=== PATIENT | male | born 1975 | race Caucasian/White ===

== ENCOUNTER 2020-06-24 22:15 | Observation (INO) ==
--- NOTE | 2020-06-24 22:40 | ERNOTE ---
Date of Service: 06/24/20 Time Seen by Provider: 06/24/20 22:30 Stated Complaint: URI Presenting Symptoms:: cough Source: patient Exam Limitations: no limitations Immunizations: IMMUNIZATION HX Immunizations Up to Date Yes History of Influenza Vaccine No Hx Pneumococcal Vaccination No Allergies/Adverse Reactions: Allergies morphine Allergy (Verified 09/22/18 01:23) Home Medications: HOME MEDICATIONS Albuterol Sulfate [Ventolin Hfa] 1 - 2 puff IH Q4H PRN #1 hfa.aer.ad 05/21/20 [Last Taken Unknown] - History of Present Ilness Narrative: 44-year-old male with past medical history of COPD, previous IV drug use presents for cough and shortness of breath. Patient states he smokes approximately half pack a day. He recently stopped using IV drugs approximately 3 weeks ago. He notes having a recent cough for about a month now. He was seen in our emergency department at the end of April and started on azithromycin with prednisone. He was later then seen by his primary care provider and started on doxycycline. He states despite these medications his symptoms have worsened. He reports having a fever yesterday of 102. Patient also states that he had COVID-19 in February 2020. He reports full resolution symptoms since his February diagnosis of Covid. Patient reports that when he was previously diagnosed with COVID-19 he was incarcerated. Patient reports his cough is nonproductive, and primarily he has noticed wheezing or shortness of breath. Patient reports he has been taking steroid inhaler, DuoNeb, and albuterol at home without resolution of symptoms. Timing: constant, getting worse Frequency/Possible Cause: Reports: occasional episodes Modifying Factors - Improves: Reports: albuterol Modifying Factors - Worsens: Reports: coughing Associated Symptoms: Reports: cough, shortness of breath, wheezing Prior Treatment: Reports: recently seen, treated by physician Review of Systems - Narrative Narrative: REVIEW OF SYSTEMS GENERAL: Negative for any nausea, vomiting, or weight loss. HEENT: Negative for sore throats, congestion, changes in vision, changes in hearing, CARDIAC: Negative for any chest pain, or palpitations. PULMONARY: Positive for shortness of breath, cough, or wheezing. GASTROINTESTINAL: Negative for any abdominal pain, nausea, vomiting, constipation, or diarrhea. GENITOURINARY: Negative for any dysuria, changes in urine output. INTEGUMENTARY: Negative for any rashes. NEUROLOGIC: Negative for changes in vision or headaches. RHEUMATOLOGIC: Negative for any joint pains, Medical History (Last Reviewed 06/25/20 @ 00:56 by Sulaiman Perez MD) Asthma HTN (hypertension) Seizure Surgical History: Surgical History (Last Reviewed 06/25/20 @ 00:56 by Sulaiman Perez MD) Hx of appendectomy Family History: Family History (Last Reviewed 06/25/20 @ 00:56 by Sulaiman Perez MD) Other No pertinent family history in first degree relatives Social History: (Last Reviewed 06/25/20 @ 00:56 by Sulaiman Perez MD) Tobacco: Smoking Status: Current every day smoker Alcohol: alcohol intake: former Substance Use: substance use type: amphetamines Physical Exam - Physical Exam General Appearance: Present: wd/wn, no apparent distress Respiratory: Present: no accessory muscle use, decreased breath sounds, rhonchi, wheezing Cardiovascular/Chest: Present: tachycardia Gastrointestinal/Abdominal: Present: nontender Neurological Exam: Present: alert, oriented, normal mood/affect Skin Exam: Present: normal color, warm/dry Progress - Date and Time Seen: Date and Time: 06/25/20 01:08 44-year-old male presenting after failing multiple outpatient antibiotic regimens, continued cough with fever. Patient is noted have elevated white blood cell count and a physical exam consistent with pneumonia. His chest x-ray shows subtle findings concerning for early pneumonia when compared to May 21, 2020. Additionally, patient's physical exam and other work-up does clinically fit with acute pneumonia. Patient was started on levofloxacin given his previous trials of azithromycin and doxycycline. Additionally, the patient was given DuoNeb, albuterol neb, and prednisone. - Results and Orders Patient's Lab Results:: I have reviewed the patient's lab results. - Vital Signs Patient's Vital Signs:: I have reviewed the patient's vital signs. Vital Signs: Vital Signs 06/24/20 22:31 Temperature 36.6 C Pulse Rate 130 H Respiratory Rate 24 H Blood Pressure 150/95 H O2 Sat by Pulse Oximetry 95 - EKG EKG #1 EKG: supraventricular tachycardia - Progress/Reassessment Chief Complaint: Cough Progress:: Improved - Transfer of Care Expected Disposition: Admit Departure Clinical Impression: Pneumonia Qualifiers: Pneumonia type: due to unspecified organism Laterality: unspecified laterality Lung location: unspecified part of lung Qualified Code(s): J18.9 - Pneumonia, unspecified organism - Departure Disposition: Still a patient Condition: Good
[2020-06-24] MEDS ORDERED: ALBUTEROL SULFATE/IPRATROPIUM 3 ML NEBU IH ONE ×2 (22:43→23:10)
[2020-06-24 23:54] LABS: Hematocrit 39.4 % (42.0-52.0); Hemoglobin 12.6 gm/dL (13.5-18.0); Mean Cell Volume 91.4 fl (78-100); Mean Corpuscular Hemoglobin 29.2 pg (27-31); Mean Platelet Volume 9.3 fl (8-11.3); Neutrophil # 14.9 K/mm3 (1.3-6.0); Neutrophil % 97.8 % (42-75.0); Platelet Count 325 K/mm3 (150-450); Red Blood Count 4.31 M/mm3 (4.7-6.0); Red Cell Distribution Width 13.2 % (11.5-14.0); White Blood Count 15.3 K/mm3 (4.0-10.5)
[2020-06-25 00:23] LABS: Anion Gap 13.5 mmol/L (6.8-13.8); BUN/Creatinine Ratio 14.1 (9.0-21.6); Calcium * 9.2 mg/dL (7.9-10.9); Carbon Dioxide 26.4 mmol/L (24-32.6); Estimated Creat Clear 127.4; Potassium 3.9 mmol/L (3.4-4.6)
[2020-06-25] MEDS ORDERED: ALBUTEROL SULFATE 2.5 MG/0.5 ML VIAL.NEB IH ONE (00:31)
[2020-06-25] MEDS ORDERED: predniSONE 20 MG TABLET PO ONE (00:31)
[2020-06-25] MEDS ORDERED: NORMAL SALINE 1,000 ML IV PRN (00:39)
[2020-06-25] MEDS ORDERED: LEVOFLOXACIN IN DEXTROSE 5 % 750 MG/150 ML BAG IV SCH (00:45)
[2020-06-25] MEDS ORDERED: ACETAMINOPHEN 500 MG TABLET PO PRN (05:54)
[2020-06-25 10:43] LABS: Hematocrit 37.4 % (42.0-52.0); Hemoglobin 11.8 gm/dL (13.5-18.0); Mean Cell Volume 92.8 fl (78-100); Mean Corpuscular Hemoglobin 29.3 pg (27-31); Mean Corpuscular Hgb Conc 31.6 g/dl (32-36); Mean Platelet Volume 9.9 fl (8-11.3); Neutrophil # 11.5 K/mm3 (1.3-6.0); Neutrophil % 91.5 % (42-75.0); Platelet Count 346 K/mm3 (150-450); Red Blood Count 4.03 M/mm3 (4.7-6.0); Red Cell Distribution Width 13.2 % (11.5-14.0); White Blood Count 12.6 K/mm3 (4.0-10.5)
[2020-06-25 11:05] LABS: Anion Gap 13.4 mmol/L (6.8-13.8); BUN/Creatinine Ratio 13.8 (9.0-21.6); Bilirubin, Total 0.2 mg/dL (0.0-1.1); Ca. Corrected For Albumin 9.6 mg/dL (8.4-10.2); Calcium * 9.1 mg/dL (7.9-10.9); Carbon Dioxide 26.9 mmol/L (24-32.6); Potassium 4.3 mmol/L (3.4-4.6); Total Protein 7.5 gm/dL (6.2-8.2)
--- NOTE | 2020-06-25 11:18 | HPDIS ---
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 Spent approx. 1 month hospitalized at [facility] Surgical History: Surgical History (Last Reviewed 06/25/20 @ 03:01 by Meri Mayo RN) Hx of appendectomy Family History: Family History (Last Reviewed 06/25/20 @ 03:01 by Meri Mayo, TREE) Other No pertinent family history in first degree relatives Social History: (Last Updated 06/25/20 @ 03:03 by Meri Mayo RN) Tobacco: Smoking Status: Current every day smoker tobacco type: cigarettes Smoking packs per day: 0.5 Smoking risk assessment performed?: Yes Smoking risk assessment performed? comment: patient currently trying to quit Alcohol: alcohol intake: former Substance Use: substance use type: amphetamines details: quit using April 2020 counseling provided: treatment program Immunizations: IMMUNIZATION HX Immunizations Up to Date Yes History of Influenza Vaccine No Hx Pneumococcal Vaccination No Allergies/Adverse Reactions: Allergies Allergy/AdvReac Type Severity Reaction Status Date / Time morphine Allergy Verified 09/22/18 01:23 Home Medications: HOME MEDICATIONS Albuterol Sulfate [Ventolin Hfa] 1 - 2 puff IH Q4H PRN #1 hfa.aer.ad 05/21/20 [Last Taken Unknown] Acetaminophen [Tylenol] 1,000 mg PO Q6H PRN tablet 06/25/20 [Last Taken Unknown] Buprenorphine HCl/Naloxone HCl [Suboxone 8 mg-2 mg Sl Film] 1 ea SL BID 06/25/20 [Last Taken Unknown] Levofloxacin [Levaquin] 750 mg PO DAILY #10 tab 06/25/20 [Last Taken Unknown] predniSONE [Prednisone] 2 tab PO DAILY #25 tab 06/25/20 [Last Taken Unknown] Exam - Exam Vital Signs: Vital Signs - Last Taken Temp 36.4 C 06/25/20 09:00 Pulse 85 06/25/20 09:00 Resp 18 06/25/20 09:00 BP 120/68 06/25/20 09:00 Pulse Ox 93 06/25/20 09:00 Diagnostic Studies: Abnormal Lab Results 06/24/20 06/24/20 06/25/20 Range/Units 23:47 23:47 09:53 WBC 15.3 H 12.6 H (4.0-10.5) K/mm3 RBC 4.31 L 4.03 L (4.7-6.0) M/mm3 Hgb 12.6 L 11.8 L (13.5-18.0) gm/dL Hct 39.4 L 37.4 L (42.0-52.0) % MCHC 31.6 L (32-36) g/dl Immature Gran % (Auto) 0.60 H (0.001-0.429) % Immature Gran # (Auto) 0.06 H 0.08 H (0.000-0.0310) K/mm3 Neutrophils % 97.8 H 91.5 H (42-75.0) % Lymphocytes % 1.2 L 5.0 L (20-51) % Neutrophils # 14.9 H 11.5 H (1.3-6.0) K/mm3 Lymphocytes # 0.19 L 0.63 L (1.5-3.5) k/mm3 Random Glucose 292 H (70-110) mg/dL Albumin (3.4-5.0) gm/dl 06/25/20 Range/Units 09:53 WBC (4.0-10.5) K/mm3 RBC (4.7-6.0) M/mm3 Hgb (13.5-18.0) gm/dL Hct (42.0-52.0) % MCHC (32-36) g/dl Immature Gran % (Auto) (0.001-0.429) % Immature Gran # (Auto) (0.000-0.0310) K/mm3 Neutrophils % (42-75.0) % Lymphocytes % (20-51) % Neutrophils # (1.3-6.0) K/mm3 Lymphocytes # (1.5-3.5) k/mm3 Random Glucose 229 H (70-110) mg/dL Albumin 3.0 L (3.4-5.0) gm/dl Laboratory Results WBC 12.6 K/mm3 (4.0-10.5) H 06/25/20 09:53 RBC 4.03 M/mm3 (4.7-6.0) L 06/25/20 09:53 Hgb 11.8 gm/dL (13.5-18.0) L 06/25/20 09:53 Hct 37.4 % (42.0-52.0) L 06/25/20 09:53 MCV 92.8 fl (78-100) 06/25/20 09:53 MCH 29.3 pg (27-31) 06/25/20 09:53 MCHC 31.6 g/dl (32-36) L 06/25/20 09:53 RDW 13.2 % (11.5-14.0) 06/25/20 09:53 Plt Count 346 K/mm3 (150-450) 06/25/20 09:53 MPV 9.9 fl (8-11.3) 06/25/20 09:53 Immature Gran % (Auto) 0.60 % (0.001-0.429) H 06/25/20 09:53 Immature Gran # (Auto) 0.08 K/mm3 (0.000-0.0310) H 06/25/20 09:53 Neutrophils % 91.5 % (42-75.0) H 06/25/20 09:53 Lymphocytes % 5.0 % (20-51) L 06/25/20 09:53 Monocytes % 2.7 % (0.0-9) 06/25/20 09:53 Eosinophils % 0.0 % (0.0-3.0) 06/25/20 09:53 Basophils % 0.2 % (0.0-1.0) 06/25/20 09:53 Nucleated RBC % 0.0 k/mm3 (0-1) 06/25/20 09:53 Neutrophils # 11.5 K/mm3 (1.3-6.0) H 06/25/20 09:53 Lymphocytes # 0.63 k/mm3 (1.5-3.5) L 06/25/20 09:53 Monocytes # 0.3 k/mm3 (0.0-1.0) 06/25/20 09:53 Eosinophils # 0.0 k/mm3 (0.0-0.7) 06/25/20 09:53 Absolute Basophils 0.0 k/mm3 (0.0-0.1) 06/25/20 09:53 Sodium 137 mmol/L (132-142) 06/25/20 09:53 Plasma Sodium 139 mmol/L (130-142) 06/25/20 09:53 Potassium 4.3 mmol/L (3.4-4.6) 06/25/20 09:53 Chloride 101 mmol/L (97-106) 06/25/20 09:53 Carbon Dioxide 26.9 mmol/L (24-32.6) 06/25/20 09:53 Anion Gap 13.4 mmol/L (6.8-13.8) 06/25/20 09:53 BUN 11 mg/dL (6-23) 06/25/20 09:53 Creatinine 0.80 mg/dL (0.4-1.4) 06/25/20 09:53 Est GFR (Non-Af Amer) 113 mL/min (60-130) 06/25/20 09:53 BUN/Creatinine Ratio 13.8 (9.0-21.6) 06/25/20 09:53 Random Glucose 229 mg/dL (70-110) H 06/25/20 09:53 Lactic Acid, Venous 1.7 mmol/L (0.4-2.0) 06/24/20 23:47 Calcium 9.1 mg/dL (7.9-10.9) 06/25/20 09:53 Calcium Adj for Albumin 9.6 mg/dL (8.4-10.2) 06/25/20 09:53 Total Bilirubin 0.2 mg/dL (0.0-1.1) 06/25/20 09:53 AST 14 U/L (0-48) 06/25/20 09:53 ALT 49 U/L (19-67) 06/25/20 09:53 Alkaline Phosphatase 77 U/L (50-170) 06/25/20 09:53 Total Protein 7.5 gm/dL (6.2-8.2) 06/25/20 09:53 Albumin 3.0 gm/dl (3.4-5.0) L 06/25/20 09:53 SARS-CoV-2 (PCR) Not detected (NotDetected) 06/25/20 00:36 Assessment/Plan - Assessment/Plan (1) Pneumonia Problem: Acute Qualifiers: Pneumonia type: due to unspecified organism Laterality: unspecified laterality Lung location: unspecified part of lung Qualified Code(s): J18.9 - Pneumonia, unspecified organism (1) Pneumonia Problem: Acute Qualifiers: Pneumonia type: due to unspecified organism Laterality: left Lung location: lower lobe of lung Qualified Code(s): J18.9 - Pneumonia, unspecified organism Date of Discharge:: 06/25/20 Hospital Course: Moe was admitted for pneumonia after failing outpatient treatment twice with Azithromycin and Doxycycline. He was started on Levaquin in the ER. This morning his WBC is improving from 15k to 12k and he is feeling better. He would like to go home. His vitals are stable and he is not requiring oxygen. Will discharge to home on oral levaquin and prednisone. Procedures Performed: none Results and Findings: Lab Pending Results 06/24/20 23:47: WBC 15.3 H, RBC 4.31 L, Hgb 12.6 L, Hct 39.4 L, MCV 91.4, MCH 29.2, MCHC 32.0, RDW 13.2, Plt Count 325, MPV 9.3, Immature Gran % (Auto) 0.40, Immature Gran # (Auto) 0.06 H, Neutrophils % 97.8 H, Lymphocytes % 1.2 L, Monocytes % 0.5, Eosinophils % 0.0, Basophils % 0.1, Nucleated RBC % 0.0, Neutrophils # 14.9 H, Lymphocytes # 0.19 L, Monocytes # 0.1, Eosinophils # 0.0, Absolute Basophils 0.0 06/24/20 23:47: Sodium 135, Plasma Sodium 138, Potassium 3.9, Chloride 99, Carbon Dioxide 26.4, Anion Gap 13.5, BUN 11, Creatinine 0.78, Est GFR (Non-Af Amer) 116, BUN/Creatinine Ratio 14.1, Random Glucose 292 H, Calcium 9.2 06/24/20 23:47: Lactic Acid, Venous 1.7 06/25/20 00:36: SARS-CoV-2 (PCR) Not detected 06/25/20 09:53: WBC 12.6 H, RBC 4.03 L, Hgb 11.8 L, Hct 37.4 L, MCV 92.8, MCH 29.3, MCHC 31.6 L, RDW 13.2, Plt Count 346, MPV 9.9, Immature Gran % (Auto) 0.60 H, Immature Gran # (Auto) 0.08 H, Neutrophils % 91.5 H, Lymphocytes % 5.0 L, Monocytes % 2.7, Eosinophils % 0.0, Basophils % 0.2, Nucleated RBC % 0.0, Neutrophils # 11.5 H, Lymphocytes # 0.63 L, Monocytes # 0.3, Eosinophils # 0.0, Absolute Basophils 0.0 06/25/20 09:53: Sodium 137, Plasma Sodium 139, Potassium 4.3, Chloride 101, Carbon Dioxide 26.9, Anion Gap 13.4, BUN 11, Creatinine 0.80, Est GFR (Non-Af Amer) 113, BUN/Creatinine Ratio 13.8, Random Glucose 229 H, Calcium 9.1, Calcium Adj for Albumin 9.6, Total Bilirubin 0.2, AST 14, ALT 49, Alkaline Phosphatase 77, Total Protein 7.5, Albumin 3.0 L Discharge Location: Home Disposition: Home self-care Condition: Good Discharge Activity: Activity as tolerated Discharge Diet: General/regular food Referrals: [facility] [Primary Care Provider] - One Week Problem Oriented Discharge Instructions to Patient/Family: Community-Acquired Pneumonia, Adult, [id number] Prescriptions (Any new or edited meds): Levofloxacin [Levaquin] 750 mg PO DAILY #10 tab Transmission Status: Pending to [place], [place] predniSONE [Prednisone] 2 tab PO DAILY #25 tab Transmission Status: Pending to [place], [place] Complete Home Medications List: Complete Home Medication List: Albuterol Sulfate [Ventolin Hfa] 1 - 2 puff IH Q4H PRN #1 hfa.aer.ad 05/21/20 Acetaminophen [Tylenol] 1,000 mg PO Q6H PRN tablet 06/25/20 Buprenorphine HCl/Naloxone HCl [Suboxone 8 mg-2 mg Sl Film] 1 ea SL BID 06/25/20 Levofloxacin [Levaquin] 750 mg PO DAILY #10 tab 06/25/20 predniSONE [Prednisone] 2 tab PO DAILY #25 tab 06/25/20
[2020-06-25 12:45] VITALS: BP 133/84
== END 2020-06-25 12:55 | disposition home or self-care (01) ==
LOC: ER 22:15 → MS 22:15
PROVIDERS: ADMIT Family Medicine; ATTEND Family Medicine